=== PATIENT | female | born 1975 | race Caucasian/White ===

== ENCOUNTER 2019-07-05 15:49 | Emergency (ER) | payer BC, MEDICAID ==
--- NOTE | 2019-07-05 18:24 | EDM.PDOC ---
ED HPI GENERAL MEDICAL PROBLEM - General Chief Complaint: General Stated Complaint: POST SURG ISSUE Time Seen by Provider: 07/05/19 16:00 Source of Information: Reports: Patient History Limitations: Reports: No Limitations - History of Present Illness INITIAL COMMENTS - FREE TEXT/NARRATIVE: Pt. presents to ER with complaints of post surgical issues. Pt. states that she had a dermal cyst removed from her groin last week. She states that the incision was "sutured loosely" to allow for further drainage of fluid from the incision. She states that she noticed some swelling to the area and was pressing on it last night when she felt a "pop". She states that she has had a scant amount of bleeding/bloody discharge from the incision. She states that it is not significantly tender. Denies any fever or chills. No chest pain or shortness of breath. Onset: Today Onset Date: 07/04/19 Duration: Constant, Improving Location: Reports: Lower Extremity, Right Right Groin Pain Score (Numeric/FACES): 7 - Related Data Allergies Allergy/AdvReac Type Severity Reaction Status Date / Time No Known Allergies Allergy Verified 07/05/19 16:06 Home Meds: Home Meds Escitalopram Oxalate [Lexapro] 20 mg DAILY 07/05/19 [History] Gemfibrozil 600 mg BID 07/05/19 [History] Metoprolol Succinate [Toprol XL] 25 mg DAILY 07/05/19 [History] Past Medical History Cardiovascular History: Reports: High Cholesterol, Hypertension CLAIM PROCESSOR History: Reports: Other (See Below) Other CLAIM PROCESSOR History: cyst removed R groin Psychiatric History: Reports: Depression - Past Surgical History HEENT Surgical History: Reports: Oral Surgery Female Surgical History: Reports: Hysterectomy Social & Family History - Tobacco Use Smoking Status *Q: Current Every Day Smoker Years of Tobacco use: 15 Packs/Tins Daily: 0.5 - Recreational Drug Use Recreational Drug Use: No ED ROS GENERAL - Review of Systems Review Of Systems: See Below Constitutional: Reports: No Symptoms HEENT: Reports: No Symptoms Respiratory: Reports: No Symptoms Cardiovascular: Reports: No Symptoms Endocrine: Reports: No Symptoms GI/Abdominal: Reports: No Symptoms : Reports: No Symptoms Musculoskeletal: Reports: Leg Pain Skin: Reports: No Symptoms Neurological: Reports: No Symptoms Psychiatric: Reports: No Symptoms Hematologic/Lymphatic: Reports: No Symptoms Immunologic: Reports: No Symptoms ED EXAM, GENERAL - Physical Exam Exam: See Below Exam Limited By: No Limitations General Appearance: Alert, WD/WN, No Apparent Distress (Female) Exam: Other (incision noted in R inguinal area/R of labia. Incision is dry. No active bleeding. No discharge. No cellulitis. No swelling. Incision is well approximated.) Course - Vital Signs Last Recorded V/S: Last Vital Signs Temp 36.8 C 07/05/19 15:50 Pulse 94 07/05/19 15:50 Resp 18 07/05/19 15:50 BP 146/90 H 07/05/19 15:50 Pulse Ox 96 07/05/19 15:50 Departure - Departure Time of Disposition: 18:28 Disposition: Home, Self-Care 01 Clinical Impression: Post-op pain - Discharge Information Instructions: Skin Abscess Referrals: Mary Jo Christensen PA-C [Primary Care Provider] - Forms: ED Department Discharge Additional Instructions: The abscess is healing well. There is no obvious active infection noted to the area. Keep bandage on for the next several days until it is completely healed. Keep dry. Follow-up in clinic if redness, swelling or discharge from the area. Sepsis Event Note - Evaluation Sepsis Screening Result: No Definite Risk - Focused Exam Vital Signs: Vital Signs Temp Pulse Resp BP Pulse Ox 07/05/19 15:50 36.8 C 94 18 146/90 H 96 Date Exam was Performed: 07/05/19 Time Exam was Performed: 18:18 - Problem List Review Problem List Initiated/Reviewed/Updated: Yes - Assessment/Plan Plan: Procedure note was reviewed. There were no nylon sutures noted. It stated that Dr. Johnson placed 2 vicril sutures after removal of the abscess. The incision margins are well approximated. No erythema. No discharge. Pt. advised to use a simple bandaid until there is no further discharge/bleeding from the area. Recheck with surgeon as needed. Return if redness, swelling, or discharge from the area.
== END 2019-07-05 16:19 | disposition home or self-care (01) ==
LOC: VM.ED 15:49
DX: G89.18 Other acute postprocedural pain (principal); I10 Essential (primary) hypertension; E78.00 Pure hypercholesterolemia, unspecified; F32.9 Major depressive disorder, single episode, unspecified; F17.210 Nicotine dependence, cigarettes, uncomplicated; Z79.899 Other long term (current) drug therapy
CPT/HCPCS: 99283

== ENCOUNTER 2021-12-16 20:34 | Emergency (ER) | payer MEDICAID ==
[2021-12-16] MEDS ORDERED: Celecoxib 100 MG Cap PO ONE ×2 (23:00)
== END 2021-12-16 23:15 ==
LOC: VM.ED 20:34
DX: S99.922A Unspecified injury of left foot, initial encounter (principal); W21.07XA Struck by softball, initial encounter
CPT/HCPCS: 73660; 99283; A9270